=== PATIENT | female | born 1995 | race Caucasian/White ===

== ENCOUNTER 2019-01-01 17:14 | Emergency (ER) | payer OTHER, BC ==
[~2019-01-01] VITALS: Ht 170.2 cm; Wt 90.9 kg
[2019-01-01] MEDS ORDERED: COSO10OS OS (19:33)
[2019-01-01] MEDS ORDERED: PILO1OS OS (19:33)
[2019-01-01] MEDS ORDERED: BUSP15 PO (19:33)
[2019-01-01] MEDS ORDERED: CYCL12OS OS (19:33)
[2019-01-01] MEDS ORDERED: HC1C1.5 TD (19:33)
[2019-01-01] MEDS ORDERED: ARIP10TA8 PO ×2 (19:33)
[2019-01-01] MEDS ORDERED: ESCI20TA PO (19:33)
[2019-01-01] MEDS ORDERED: DIPH25 PO (19:33)
[2019-01-01] MEDS ORDERED: OFLO35OS OS (19:33)
[2019-01-01] MEDS ORDERED: OMEP20 PO (19:33)
[2019-01-01] MEDS ORDERED: PRED5DRO25 OS (19:33)
[2019-01-01] MEDS ORDERED: CALC400T29 PO (19:33)
[2019-01-01 20:09] LABS: BASOPHILS % (AUTO) 0.7 % (0.0-2.0); EOSINOPHILS % (AUTO) 0.9 % (1.0-6.0); HEMATOCRIT 40.5 % (36-46); HEMOGLOBIN 13.6 g/dL (12.0-16.0); LYMPHOCYTES # (AUTO) 3.3 K/uL (1.0-4.8); LYMPHOCYTES % (AUTO) 24.6 % (22.0-44.0); MEAN CORPUSCULAR HEMOGLOBIN 30.1 pg (26.0-34.0); MEAN CORPUSCULAR HGB CONC 33.5 G/dL (31.0-37.0); MEAN CORPUSCULAR VOLUME 90 fL (80-100); MONOCYTES # (AUTO) 0.7 K/uL (0.1-1.0); MONOCYTES % (AUTO) 5.2 % (2.0-9.0); NEUTROPHILS # (AUTO) 9.1 K/uL (1.8-7.7); NEUTROPHILS % (AUTO) 68.6 % (40.0-70.0); PLATELET COUNT (AUTO) 388 K/uL (150-450); RED CELL DISTRIBUTION WIDTH 12.7 % (11.5-14.5)
[2019-01-01] MEDS ORDERED: ARIPiprazole 10 MG TABLET PO ONE (20:15)
[2019-01-01 20:24] LABS: AMPHET/METH SCREEN,URINE NEGATIVE (NEGATIVE); BARBITURATE SCREEN, URINE NEGATIVE (NEGATIVE); BENZODIAZEPINES SCREEN,URINE NEGATIVE (NEGATIVE); CANNABINOID SCREEN,URINE NEGATIVE (NEGATIVE); COCAINE SCREEN,URINE NEGATIVE (NEGATIVE); METHADONE SCREEN, URINE NEGATIVE (NEGATIVE); OPIATE SCREEN,URINE NEGATIVE (NEGATIVE)
[2019-01-01 20:29] LABS: PHENCYCLIDINE SCREEN,URINE NEGATIVE (NEGATIVE)
[2019-01-01 20:30] LABS: ANION GAP 10 mmol/L (8-16); CALCIUM, TOTAL 8.6 mg/dL (8.8-10.5); CARBON DIOXIDE 24 mmol/L (22-29); CHLORIDE 105 mmol/L (98-107); CREATININE 0.84 mg/dL (0.60-1.30); GLOMERULAR FILTR. RATE CALC > 60 mL/min (>60); GLUCOSE,RANDOM 103 mg/dL (70-110); POTASSIUM 3.8 mmol/L (3.5-5.1); SODIUM SERUM 139 mmol/L (136-145); UREA NITROGEN, BLOOD 11 mg/dL (7-18)
[2019-01-01 20:34] LABS: ALANINE AMINOTRANSFERASE 49 U/L (12-78); ALBUMIN 3.7 g/dL (3.4-5.0); ALKALINE PHOSPHATASE 70 U/L (46-116); ASPARTATE AMINOTRANSFERASE 27 U/L (15-37); BILIRUBIN,TOTAL 0.2 mg/dL (0.1-1.0); TOTAL PROTEIN, SERUM 7.8 g/dL (6.4-8.2)
[2019-01-01 22:40] VITALS: BP 139/66
== END 2019-01-01 22:49 | disposition home or self-care (01) ==
LOC: EMS 17:15
DX: S00.83XA Contusion of other part of head, initial encounter (principal); F84.0 Autistic disorder; E66.9 Obesity, unspecified; F41.9 Anxiety disorder, unspecified; Z98.890 Other specified postprocedural states; Z79.899 Other long term (current) drug therapy; Z68.31 Body mass index [BMI] 31.0-31.9, adult; W22.8XXA Striking against or struck by other objects, initial encounter; Y93.89 Activity, other specified; Y92.89 Other specified places as the place of occurrence of the external cause; Y99.8 Other external cause status
CPT/HCPCS: 36415; 80053; 80307; 85025; 99284; G0480